=== PATIENT | female | born 1970 | race Caucasian/White ===

== ENCOUNTER 2019-03-31 15:46 | Emergency (ER) | payer SELFPAY ==
[~2019-03-31] VITALS: Ht 160 cm; Wt 71.8 kg
[2019-03-31 19:10] VITALS: BP 162/95
== END 2019-03-31 19:11 | disposition home or self-care (01) ==
LOC: ER 15:47
DX: I80.02 Phlebitis and thrombophlebitis of superficial vessels of left lower extremity (principal); G43.909 Migraine, unspecified, not intractable, without status migrainosus; J45.909 Unspecified asthma, uncomplicated; Z98.890 Other specified postprocedural states; Z88.2 Allergy status to sulfonamides; Z88.1 Allergy status to other antibiotic agents; Z79.899 Other long term (current) drug therapy
CPT/HCPCS: 93971; 99284